=== PATIENT | female | born 1965 | race Caucasian/White ===

== ENCOUNTER 2018-04-01 13:13 | Emergency (ER) | payer OTHER ==
[~2018-04-01] VITALS: Ht 170.2 cm; Wt 121.1 kg
[2018-04-01] MEDS ORDERED: VOLTAREN GEL 1100 G2 TOP (14:45)
[2018-04-01 15:17] VITALS: BP 183/85
== END 2018-04-01 15:23 | disposition home or self-care (01) ==
LOC: ER 13:13
DX: M79.641 Pain in right hand (principal); M54.16 Radiculopathy, lumbar region